=== PATIENT | female | born 1975 | race Caucasian/White ===

== ENCOUNTER 2018-06-07 19:44 | Emergency (ER) | payer OTHER, SELFPAY ==
[2018-06-07 19:45] VITALS: BP 165/90; PULSE 88; RESP 16; TEMP 35.8; O2SAT 100; BMI 39.3
--- NOTE | 2018-06-07 20:09 | US_ITS ---
STUDY: ABDOMINAL ULTRASOUND - RIGHT UPPER QUADRANT REASON FOR VISIT: Female, 43 years old. Right upper quadrant pain. TECHNIQUE: Ultrasound evaluation of the right upper quadrant was performed with real-time and static flaherty-scale imaging. TECHNICAL QUALITY: Adequate. COMPARISON: None. FINDINGS: Liver: The liver measures 16.4 cm. There is normal echogenicity of the liver. The bile ducts are within normal limits. There is hepatic color flow. The direction of portal flow is hepatopetal. There is no demonstrated mass lesion. Gallbladder: Normal distended gallbladder. The gallbladder wall measures 3.7 mm. There is a negative sonographic Renee's sign. There is no definitive pericholecystic fluid. There are echogenic nonshadowing foci within the gallbladder measuring up to 4.3 mm. Common Bile Duct (C.B.D.): The common bile duct measures 2.5 mm. Pancreas: The visualized pancreatic head within normal limits. Right Kidney: Normal size of the right kidney. The right kidney measures 11.7 cm in length. Normal renal cortex. There is no demonstrated renal mass or cyst. There is no right hydronephrosis. US/Gallbladder IMPRESSION: Echogenic nonshadowing foci within the gallbladder that likely reflect underlying polyps and/or calculi. Gallbladder wall thickening with no associated sonographic Renee's sign, cannot exclude chronic cholecystitis. Electronically Signed: Bettie Garcia MD at 23:03 EST Tel , Service support ,
[2018-06-07] MEDS: 0.9% Normal Saline 1,000 ML 1000 ML IV (20:27)
[2018-06-07] MEDS: Ondansetron 4 MG/2 ML Vial IV (20:27)
[2018-06-07] MEDS: Morphine 4 MG/ML Syringe IV (20:27)
[2018-06-07 20:38] LABS: Absolute Lymphocyte Count 1.39 X10^3/ul (0.83-4.51); Absolute Neutrophil Count 4.9 X10^3/uL (2.0-7.7); Basophil# 0.02 X10^3/uL; Basophil% 0.3 % (0-1); Eosinophil# 0.16 X10^3/uL; Eosinophils% 2.4 % (0-5); Hematocrit 41.3 % (37-47); Hemoglobin 13.2 g/dl (12.0-15.0); Lymphocyte # 1.39 X10^3/ul (4.0); Lymphocyte % 20.7 % (19-41); Mean Corpuscular Hgb 27.7 pg (27.0-32.0); Mean Corpuscular Volume 86.6 fL (81-99); Mean Platelet Vol. 11.9 fl (6.2-12.0); Monocyte# 0.23 X10^3/uL; Monocyte% 3.4 % (0-10); Neutrophil # 4.88 X10^3/uL (2.7-7.7); Neutrophil % 72.9 % (47-70); Platelet Count 292 K/mm3 (150-450); RBC Distribution Width CV 14.4 % (11.6-14.6); RBC Distribution Width SD 46.2 fl (35.1-43.9); Red Blood Count 4.77 M/mm3 (4.2-5.4); White Blood Count 6.7 K/mm3 (4.4-11.0)
[2018-06-07 20:39] LABS: POSITIVE COUNT NO; POSITIVE DIFFERENTIAL NO; POSITIVE MORPHOLOGY NO
[2018-06-07 20:49] LABS: ALB/GLOB Ratio 1.1 RATIO (0.9-2.4); AST(SGOT) 22 U/L (15-37); Alanine Aminotransfer ALT/SGPT 28 U/L (13-56); Albumin, Serum 4.3 g/dL (3.2-5.0); Alkaline Phosphatase 75 U/L (45-117); Anion Gap 8 (5-15); BUN 16 mg/dL (7-18); BUN/Creat Ratio 18.7 RATIO (10-20); Calcium,Total 9.4 mg/dL (8.5-10.1); Chloride 102 mmol/L (98-107); Creatinine, Serum 0.86 mg/dL (0.55-1.02); EST Glomerular Filtration Rate 76 mL/min (>60); Est Glom Filt Rate - Afr Amer 92 mL/min (>60); Estimated Creatinine Clearance 68.33 ml/min; Glucose 99 mg/dL (74-106); Lipase 170 U/L (73-393); Potassium 4.1 mmol/L (3.5-5.1); Protein, Total 8.3 g/dL (6.4-8.2); Sodium Level 138 mmol/L (136-145)
--- NOTE | 2018-06-07 22:16 | ED.VISSUMM ---
- ER Visit Summary Date of Service: 06/07/18 Chief Complaint: Abdominal pain History of Present Illness: The patient is a 43 F with abdominal pain that started about an hour prior to arrival she was eating wings. Pain is in the right upper quadrant, there is nausea associated with this. She has no abdominal pain no flank pain no fever chills. She has nausea. Physical Examination: Patient appears in some distress Moist mucous membranes, no obvious facial deformity No C-spine tenderness supple neck. Regular rate and rhythm without any obvious murmurs Clear lungs bilaterally speaking in full sentences without any obvious respiratory distress Abdomen soft with right upper quadrant pain. She has a negative Renee's. Moves all extremities without any difficulty or pain. Skin does not show any obvious rashes or lesions, no trauma. Alert oriented ?3 with no gross focal deficit Emergency Department Course and Treatment: Patient is found to have gallstones, she has no evidence of obstruction or infection. She improved significantly I will discharge her with general surgery follow-up. Disposition: [Discharge stable condition] Impression: [Biliary colic] This note was generated with [employer] dictation software. It may contain incorrect words, spelling, and punctuation that were not noted in review of the chart prior to signing ED Disposition - Plan for ED Patient: Instructions: What are Gallstones? Prescriptions: Hydrocodone/Acetaminophen [[place] 5-325 Tablet] 1 ea PO TID PRN #12 tab PRN Reason: Pain Referrals: Nancy Monge MD [STAFF PHYSICIAN] - 3-5 Days
--- NOTE | 2018-06-07 22:19 | ED.DCSUM_ITS ---
- ER Visit Summary Date of Service: 06/07/18 Chief Complaint: Abdominal pain History of Present Illness: The patient is a 43 F with abdominal pain that started about an hour prior to arrival she was eating wings. Pain is in the right upper quadrant, there is nausea associated with this. She has no abdomin al pain no flank pain no fever chills. She has nausea. Physical Examination: Patient appears in some distress Moist mucous membranes, no obvious facial deformity No C-spine tenderness supple neck. Regular rate and rhythm without any obvious murmurs Clear lungs bilaterally speaking in full sentences without any obvious respiratory distress Abdomen soft with right upper quadrant pain. She has a negative Renee's. Moves all extremities without any difficulty or pain. Skin does not show any obvious rashes or lesions, no trauma. Alert oriented ?3 with no gross focal deficit Emergency Department Course and Treatment: Patient is found to have gallstones, she has no evidence of obstruction or infection. She improved significantly I will discharge her with general surgery follow-up. Disposition: [Discharge stable condition] Impression: [Biliary colic] This note was generated with [employer] dictation software. It may contain incorrect words, spelling, and punctuation that were not noted in review of the chart prior to signing ED Disposition - Plan for ED Patient: Instructions: What are Gallstones? Prescriptions: Hydrocodone/Acetaminophen [[place] 5-325 Tablet] 1 ea PO TID PRN #12 tab PRN Reason: Pain Referrals: Nancy Monge MD [STAFF PHYSICIAN] - 3-5 Days
[2018-06-07 23:09] VITALS: BP 138/78; PULSE 89; RESP 18; O2SAT 95
[2018-06-07] MEDS: HYDROcodone Bitartrate/Apap 5/325 Tablet PO (23:24)
== END 2018-06-07 23:29 | disposition home or self-care (01) ==
PROVIDERS: Emergency Provider Emergency Medicine
DX: K80.50 Calculus of bile duct without cholangitis or cholecystitis without obstruction (principal)
CPT/HCPCS: 76705; 80053; 83690; 85025; 96361; 96374; 96375; 99284; A4216; J2405

== ENCOUNTER 2018-06-16 11:59 | Observation (INO) | payer OTHER, SELFPAY ==
[2018-06-16] VITALS (8 sets, daily range): BP systolic 106–156; BP diastolic 57–98; PULSE 69–106; RESP 16–18; TEMP 36.4–36.9; O2SAT 95–98; BMI 37.8
--- NOTE | 2018-06-16 10:29 | PCM.HP.BLA ---
History and Physical Date of Admission: 06/16/18 Joi Alonzo 1975 ? ? REFERRING PHYSICIAN: Self ? CHIEF COMPLAINT: Consult (Consult Gallbladder) ? HPI: The patient is a 43 year old female s/p laparoscopic cholecystectomy with intraoperative cholangiograms today at [facility]. She was found to have by cholangiograms - no flow into duodenum - despite attempts to flush the CBD and also giving IV glucagon 1mg. She had preoperative normal LFTs when she presented to [facility] ED on 06/07/18. Now has persistent epigastric abdominal pain. She will be admitted to [facility] for ERCP to be done by Dr. Jaramillo. US gallbladder 06/07/18 - echogenic nonshadowing foci withih tne gallbladder measuring up to 4.3 mm, normal common bile duct ? ? PAST MEDICAL HISTORY ? GERD (gastroesophageal reflux disease) ? ? Kidney stones ? ? Migraines ? ? PAST SURGICAL HISTORY ? BREAST REDUCTION Bilateral 10/04/2015 ? GLOBAL ESWL KIDNEY Right 10/2001 ? VAGINAL HYSTERECTOMY ? 04/07/2010 ? Hysterectomy, vaginal for metrorrhagia ? ? Current Outpatient Prescriptions: buPROPion SR (WELLBUTRIN SR) 150 mg 12 hr tablet Take 150 mg by mouth twice daily. ranitidine (ZANTAC) 150 mg tablet Take 150 mg by mouth twice daily. aspirin/acetaminophen/caffeine (EXCEDRIN MIGRAINE ORAL) Take by mouth. esomeprazole mag trihydrate(NEXIUM 20 MG CAP) Take one(1) capsule daily. ? ? ALLERGIES: Bactrim [Sulfamethoxazole]; Percocet [Oxycodone-Acetaminophen] ? PERSONAL HISTORY: Social History Marital status: Spouse name: Years of education: Number of children: Social History Main Topics Smoking status: Never Smoker ? FAMILY HISTORY: no gallbladder disease known in family ? ? REVIEW OF SYSTEMS: General - denies fevers Cardiovascular - denies chest pain Pulmonary - denies shortness of breath Gastrointestinal - denies abdominal pain Neurological - has migraine headaches - took excedrin this morning, denies seizures Genitourinary - denies burning with urination Hematological - denies spontaneous/prolonged bleeding Skin - denies nonhealing skin wounds Musculoskeletal - denies chronic joint/back pain Endocrine - denies diabetes Psychological ? denies hallucinations ? PHYSICAL EXAMINATION: General: The patient is 43 year old female, well nourished, well hydrated in no acute distress. The patient is oriented to time, place, and person. VITALS: Blood pressure 115/84, pulse 105, temperature 36.4 ?C (97.5 ?F), temperature source Temporal Artery, height 160 cm (5' 3), weight 97.7 kg (215 lb 6.4 oz), SpO2 93 %. Body mass index is 38.16 kg/m?. Head ? Normocephalic. EOM intact with sclera clear and no icterus noted. Wearing glasses. Mouth with mucus membranes moist. Neck - supple with no jugular venous distention noted. Trachea is midline. Lungs ? clear to auscultation. Normal breath sounds . No rales/rhonchi/wheezing noted. No labored breathing noted, such as retractions. No cough heard. Heart ? normal S1 and S2 auscultated. No rubs/clicks/murmurs noted. Regular rate. Abdomen ? soft and benign. Tender in epigastrium and right upper quadrant - no peritoneal signs. Normal bowel sounds. Difficult to determine if any masses or organomegaly due to body habitus. Extremities ? no calf tenderness noted. No pitting edema noted. Skin ? normal skin integrity. Neurological ? gait normal, no focal deficits noted Psych ? calm and appropriate ? ? IMPRESSION: s/p laparoscopic cholecystectomy - findings by IOC of CBD obstruction with no flow into duodenum ? PLAN: I have discussed the above with the patient. Will admit to [facility]. I have discussed case with Dr. Jaramillo, he states that he will try to add on ERCP for today or tomorrow. He will evaluate patient today. I have answered all questions to the patient?s satisfaction and the patient has no further questions.
--- NOTE | 2018-06-16 10:34 | HP.PCM_ITS ---
History and Physical Date of Admission: 06/16/18 Joi Alonzo 1975 ? ? REFERRING PHYSICIAN: Self ? CHIEF COMPLAINT: Consult (Consult Gallbladder) ? HPI: The patient is a 43 year old female s/p laparoscopic cholecystectomy with intraoperative cholangiograms today at [facility]. She was found to have by cholangiograms - no flow into duodenum - despite attempts to flush the CBD and also giving IV glucagon 1mg. She had preoperative normal LFTs when she presented to [facility] ED on 06/07/18. Now has persistent epigastric abdominal pain. She will be admitted to [facility] for ERCP to be done by Dr. Jaramillo. US gallbladder 06/07/18 - echogenic nonshadowing foci withih tne gallbladder measuring up to 4.3 mm, normal common bile duct ? ? PAST MEDICAL HISTORY ? GERD (gastroesophageal reflux disease) ? ? Kidney stones ? ? Migraines ? ? PAST SURGICAL HISTORY ? BREAST REDUCTION Bilateral 10/04/2015 ? GLOBAL ESWL KIDNEY Right 10/2001 ? VAGINAL HYSTERECTOMY ? 04/07/2010 ? Hysterectomy, vaginal for metrorrhagia ? ? Current Outpatient Prescriptions: buPROPion SR (WELLBUTRIN SR) 150 mg 12 hr tablet Take 150 mg by mouth twice daily. ranitidine (ZANTAC) 150 mg tablet Take 150 mg by mouth twice daily. aspirin/acetaminophen/caffeine (EXCEDRIN MIGRAINE ORAL) Take by mouth. esomeprazole mag trihydrate(NEXIUM 20 MG CAP) Take one(1) capsule daily. ? ? ALLERGIES: Bactrim [Sulfamethoxazole]; Percocet [Oxycodone-Acetaminophen] ? PERSONAL HISTORY: Social History Marital status: Spouse name: Years of education: Number of children: Social History Main Topics Smoking status: Never Smoker ? FAMILY HISTORY: no gallbladder disease known in family ? ? REVIEW OF SYSTEMS: General - denies fevers Cardiovascular - denies chest pain Pulmonary - denies shortness of breath Gastrointestinal - denies abdominal pain Neurological - has migraine headaches - took excedrin this morning, denies seizures Genitourinary - denies burning with urination Hematological - denies spontaneous/prolonged bleeding Skin - denies nonhealing skin wounds Musculoskeletal - denies chronic joint/back pain Endocrine - denies diabetes Psychological ? denies hallucinations ? PHYSICAL EXAMINATION: General: The patient is 43 year old female, well nourished, well hydrated in no acute distress. The patient is oriented to time, place, and person. VITALS: Blood pressure 115/84, pulse 105, temperature 36.4 ?C (97.5 ?F), temperature source Temporal Artery, height 160 cm (5' 3), weight 97.7 kg (215 lb 6.4 oz), SpO2 93 %. Body mass index is 38.16 kg/m?. Head ? Normocephalic. EOM intact with sclera clear and no icterus noted. Wearing glasses. Mouth with mucus membranes moist. Neck - supple with no jugular venous distention noted. Trachea is midline. Lungs ? clear to auscultation. Normal breath sounds . No rales/rhonchi/wheezing noted. No labored breathing noted, such as retractions. No cough heard. Heart ? normal S1 and S2 auscultated. No rubs/clicks/murmurs noted. Regular rate. Abdomen ? soft and benign. Tender in epigastrium and right upper quadrant - no peritoneal signs. Normal bowel sounds. Difficult to determine if any masses or organomegaly due to body habitus. Extremities ? no calf tenderness noted. No pitting edema noted. Skin ? normal skin integrity. Neurological ? gait normal, no focal deficits noted Psych ? calm and appropriate ? ? IMPRESSION: s/p laparoscopic cholecystectomy - findings by IOC of CBD obstruction with no flow into duodenum ? PLAN: I have discussed the above with the patient. Will admit to [facility]. I have discussed case with Dr. Jaramillo, he states that he will try to add on ERCP for today or tomorrow. He will evaluate patient today. I have answered all questions to the patient?s satisfaction and the patient has no further questions.
--- NOTE | 2018-06-16 12:47 | PN.SURG_ITS ---
Subjective: Patient is complaining of some mild postoperative abdominal pain. - Physical Exam General: Alert, Oriented x3, Cooperative Neck: No JVD Lungs: Normal air movement Cardiovascular: Regular rate, Regular Rhythm Abdomen: Soft Body Mass Index (BMI) 39.3 Medical Necessity - Tobacco Use Smoking Status: Never smoker Assessment/Plan 43-year-old female with obstruction on cholangiogram 1. Patient had laparoscopic cholecystectomy at outside hospital this morning. Intraoperative cholangiogram showed no filling of the duodenum. Patient was sent here for ERCP. 2. I explained ERCP in detail to the patient including the risks of the procedure. I explained the risks including but not limited to bleeding, infection, perforation of the bile duct or bowels, pancreatitis. The patient understands the risks and is willing to proceed with surgery. Ellis Jaramillo MD Pager: [facility] [address] [place] [address], [address] [place] [phone] Office:
[2018-06-16] MEDS: Lactated Ringers 1,000 ML 75 ML IV ×2 (12:53→21:39)
[2018-06-16] MEDS: Morphine 4 MG/ML Syringe IV ×2 (12:54→19:05)
--- NOTE | 2018-06-16 15:04 | NURSING ---
Report given to Anca in surgery at this time. Pt down to OR.
--- NOTE | 2018-06-16 16:00 | RAD_ITS ---
STUDY: ERCP. REASON FOR EXAM: Female, 43 years old. Biliary assessment. FLUOROSCOPY TIME (if supplied): (1:38) minutes/seconds TECHNIQUE: The surgeon performed the ERCP. Contrast was injected. COMPARISON: None. FINDINGS: The visualized common bile duct and central intrahepatic biliary ducts are unremarkable. RAD/ERCP Biliary Only IMPRESSION: Unremarkable examination as seen on the imaging provided. Electronically Signed: Tima Barnes MD at 9:24 EST , Service support ,
--- NOTE | 2018-06-16 17:24 | OP.ENDO_ITS ---
06/16/2018 Jose Alfredo Palomo Re : ERCP procedure for Joi Eason Stacia This procedure was performed on Saturday, June 16, 2018. My impressions and recommendations are as follows: Impressions : - Choledocholithiasis was found. Complete removal was accomplished by biliary sphincterotomy and balloon extraction. - A biliary sphincterotomy was performed. - The biliary tree was swept. Recommendations : - Advance diet as tolerated. My findings are described in the full procedure note, which is enclosed. If I can be of further assistance, please feel free to contact me at Doctor phone number(s): , Work: . Sincerely, Ellis Jaramillo MD 06/16/2018 5:24:15 PM This report has been signed electronically.
[2018-06-16] MEDS: Ondansetron 4 MG/2 ML Vial IV (18:19)
[2018-06-16] MEDS: buPROPion (SR) 150 MG Tablet.SA PO (21:40)
[2018-06-16] MEDS: Famotidine 20 MG Tablet PO (21:40)
[2018-06-17 02:40] VITALS: BP 131/79; PULSE 99; RESP 18; TEMP 36.8; O2SAT 95
[2018-06-17] MEDS: Morphine 4 MG/ML Syringe IV (03:48)
--- NOTE | 2018-06-17 06:39 | PCM.DC.GB ---
Discharge Diet: No Restrictions - avoid carbonated beverages for a few days Discharge Activity: Return to Normal Activity, May not drive while taking narcotic pain medications. Lifting Restrictions: no lifting greater than 20 pounds for 2 weeks Call your doctor if your incision/area has: Continuous Slow Oozing, Foul Smelling Discharge Call your doctor if you observe: Fever of 101 or Higher Additional Dressing/Incision Instructions:: Leave dressings in place. May get wet in shower - do not scrub in those areas. Do not soak - no baths/swimming Additional Instructions: Recommended pain medication regimen: take 650 mg acetaminophen, then in 3 hours take 600 mg ibuprofen, then in 3 hours take 650 mg acetaminophen, then in 3 hours take ibuprofen Take narcotic pain medication for breakthrough pain and at night can follow above for 2-3 days Allergies/Adverse Reactions: Allergies sulfamethoxazole [From Bactrim] Allergy (Verified 03/07/15 18:41) Unknown trimethoprim [From Bactrim] Allergy (Verified 03/07/15 18:41) Unknown acetaminophen [From Percocet] Adverse Reaction (Verified 06/07/18 19:47) Vomiting oxycodone [From Percocet] Adverse Reaction (Verified 06/07/18 19:47) Vomiting Medications to take at Discharge Bupropion HCl [Bupropion HCl Sr] 1 tab PO BID 06/07/18 Hydrocodone/Acetaminophen [[place] 5-325 Tablet] 1 ea PO TID PRN #12 tab 06/07/18 Ranitidine [Zantac] 150 mg PO BID 06/07/18 Aspirin/Acetaminophen/Caffeine [Excedrin Migraine Caplet] 1 each PO PRN PRN 06/16/18 Hydrocodone Bitart/Apap 5-325 [[place] 5MG-325MG] 1 tab PO Q8H PRN PRN 5 Days #15 tab 06/17/18 The following prescriptions were given: Hydrocodone Bitart/Apap 5-325 [[place] 5MG-325MG] 1 tab PO Q8H PRN PRN 5 Days #15 tab PRN Reason: Pain Primary Care Physician: Jose Alfredo Palomo [Primary Care Provider] - Test Results: Test results from this visit will be discussed in further detail at your follow-up appointment, if applicable. Please Follow Up With: Nancy Monge MD - call When: to be seen next week, date and time scheduled
--- NOTE | 2018-06-17 06:42 | DCINST_ITS ---
Discharge Diet: No Restrictions - avoid carbonated beverages for a few days Discharge Activity: Return to Normal Activity, May not drive while taking narcotic pain medications. Lifting Restrictions: no lifting greater than 20 pounds for 2 weeks Call your doctor if your incision/area has: Continuous Slow Oozing, Foul Smelling Discharge Call your doctor if you observe: Fever of 101 or Higher Additional Dressing/Incision Instructions:: Leave dressings in place. May get wet in shower - do not scrub in those areas. Do not soak - no baths/swimming Additional Instructions: Recommended pain medication regimen: take 650 mg acetaminophen, then in 3 hours take 600 mg ibuprofen, then in 3 hours take 650 mg acetaminophen, then in 3 hours take ibuprofen Take narcotic pain medication for breakthrough pain and at night can follow above for 2-3 days Allergies/Adverse Reactions: Allergies sulfamethoxazole [From Bactrim] Allergy (Verified 03/07/15 18:41) Unknown trimethoprim [From Bactrim] Allergy (Verified 03/07/15 18:41) Unknown acetaminophen [From Percocet] Adverse Reaction (Verified 06/07/18 19:47) Vomiting oxycodone [From Percocet] Adverse Reaction (Verified 06/07/18 19:47) Vomiting Medications to take at Discharge Bupropion HCl [Bupropion HCl Sr] 1 tab PO BID 06/07/18 Hydrocodone/Acetaminophen [[place] 5-325 Tablet] 1 ea PO TID PRN #12 tab 06/07/18 Ranitidine [Zantac] 150 mg PO BID 06/07/18 Aspirin/Acetaminophen/Caffeine [Excedrin Migraine Caplet] 1 each PO PRN PRN 06/16/18 Hydrocodone Bitart/Apap 5-325 [[place] 5MG-325MG] 1 tab PO Q8H PRN PRN 5 Days #15 tab 06/17/18 The following prescriptions were given: Hydrocodone Bitart/Apap 5-325 [[place] 5MG-325MG] 1 tab PO Q8H PRN PRN 5 Days #15 tab PRN Reason: Pain Primary Care Physician: Jose Alfredo Palomo [Primary Care Provider] - Test Results: Test results from this visit will be discussed in further detail at your follow- up appointment, if applicable. Please Follow Up With: Nancy Monge MD - call When: to be seen next week, date and time scheduled
--- NOTE | 2018-06-17 07:21 | PCM.PN.SRG ---
Subjective: Patient seems to doing well this morning. - Physical Exam General: Alert, Oriented x3 HEENT: Atraumatic Neck: Supple Lungs: Normal air movement Cardiovascular: Regular rate, Regular Rhythm Abdomen: Soft, Non Tender, Non-Distended Skin: No rashes Musculoskeletal: No Muscle Wasting Neurological: Cranial nerves II-XII grossly intact Psych/Mental Status: Normal Affect Vital Signs Temp Pulse Resp BP Pulse Ox 98.2 F 99 18 131/79 H 95 06/17/18 02:40 06/17/18 02:40 06/17/18 02:40 06/17/18 02:40 06/17/18 02:40 Oxygen Delivery Method Room Air Weight: 213 lb 2.992 oz Body Mass Index (BMI) 37.8 Intake and Output for Last 24 Hours 06/15/18 06/16/18 06/17/18 23:59 23:59 23:59 Intake Total 765 / 765 1537 / 1537 Output Total 125 / 125 1350 / 1350 Balance 640 / 640 187 / 187 Medical Necessity - Tobacco Use Smoking Status: Never smoker Assessment/Plan 43-year-old female with choledocholithiasis status post ERCP 1. The patient had ERCP yesterday and 2 stones were removed from the common bile duct. Patient is doing well this morning. Follow-up with Dr. Monge. She will need to follow-up with me as needed. Ellis Jaramillo MD Pager: [facility] [address] [place] [address], [address] [place] [address] Office:
[2018-06-17 08:21] VITALS: BP 100/63; PULSE 71; RESP 18; TEMP 36.8; O2SAT 97
[2018-06-17] MEDS: buPROPion (SR) 150 MG Tablet.SA PO (09:13)
[2018-06-17] MEDS: Famotidine 20 MG Tablet PO (09:13)
[2018-06-17] MEDS: HYDROcodone Bitartrate/Apap 5/325 Tablet PO (13:25)
[2018-06-17 13:35] VITALS: BP 103/68; PULSE 90; RESP 18; TEMP 36.4; O2SAT 97
== END 2018-06-17 13:40 | disposition home or self-care (01) ==
PROVIDERS: Admitting Provider Surgery; Referring Provider Surgery; Visit Provider Surgery
PROC: (CPT 43260; principal; 2018-06-16 15:30)
DX: K80.50 Calculus of bile duct without cholangitis or cholecystitis without obstruction (principal); K21.9 Gastro-esophageal reflux disease without esophagitis; Z79.899 Other long term (current) drug therapy
CPT/HCPCS: 43262; 74328; 76000; 96361; 96374; 96375; 96376; 99218; J7120; A4216; G0378; G0379; J2405

== ENCOUNTER 2019-04-07 13:18 | Day surgery (SDC) | payer OTHER, SELFPAY ==
[2018-06-16 12:45] VITALS: BMI 37.8
[2019-04-07 13:32] VITALS: BP 151/87; PULSE 90; RESP 15; TEMP 36.5; O2SAT 99; BMI 40.3
[2019-04-07] MEDS: Lactated Ringers 1,000 ML 100 ML IV (13:41)
[2019-04-07] MEDS: Cefazolin 2 GM in 0.9% Normal Saline 100 ML IV (14:44)
--- NOTE | 2019-04-07 14:51 | DCINST_ITS ---
Discharge Diet: Light diet - advance as tolerated Discharge Activity: Return to Normal Activity Call your doctor if you observe: Fever of 101 or Higher Allergies/Adverse Reactions: Allergies sulfamethoxazole [From Bactrim] Allergy (Verified 04/06/19 15:09) Unknown trimethoprim [From Bactrim] Allergy (Verified 04/06/19 15:09) Unknown acetaminophen [From Percocet] Adverse Reaction (Verified 04/06/19 15:09) Vomiting oxycodone [From Percocet] Adverse Reaction (Verified 04/06/19 15:09) Vomiting Medications to take at Discharge Hydrocodone/Acetaminophen [[place] 5-325 Tablet] 1 ea PO TID PRN #12 tab 06/07/18 Ranitidine [Zantac] 150 mg PO BID 06/07/18 Bupropion HCl [Bupropion HCl ER] 200 mg PO BID 04/06/19 Diclofenac [Voltaren] 75 mg PO BIDCM 04/06/19 Ketorolac [Toradol] 10 mg PO Q8H PRN PRN 04/06/19 Ciprofloxacin [Cipro] 500 mg PO BID #6 tab 04/07/19 Hydrocodone/Acetaminophen [[place] 5-325 Tablet] 1 ea PO Q4H PRN PRN 5 Days #14 tab 04/07/19 The following prescriptions were given: Ciprofloxacin [Cipro] 500 mg PO BID #6 tab Prescription Printed Hydrocodone/Acetaminophen [[place] 5-325 Tablet] 1 ea PO Q4H PRN PRN 5 Days #14 tab PRN Reason: Pain Score 1-10/10 Prescription Printed Primary Care Physician: Jose Alfredo Palomo [Primary Care Provider] - Test Results: Test results from this visit will be discussed in further detail at your follow- up appointment, if applicable. Please Follow Up With: Taj Chaves MD When: please call to make an appointment.
--- NOTE | 2019-04-07 15:10 | PCM.OPRPT ---
Report of Operation Date of Procedure: 04/07/19 Pre-Operative Diagnosis: Left ureteral calculi, Post-Operative Diagnosis: The same Surgery/Procedure Performed:: Cystoscopy, balloon dilation of the left ureter, left ureteroscopy laser lithotripsy of stone and basket fragments and left stent placement. Description of Surgical Findings:: 44-year-old female with a stone in the distal left ureter presents to the hospital for extraction of stone removal of the distal obstruction is causing of hydronephrosis and pain. She was taken back to the operating room at the smooth induction of anesthesia she was placed in dorsolithotomy position, the urethra vaginal area prepped and draped in usual sterile fashion, went to the bladder with a 21 [place] rigid cystourethroscope, she did have a slightly large cystocele moderate rectocele on examination, the left ureteral orifice were identified advance a wire I could feel the wire go past the stone I then advanced the balloon dilator and dilated the distal left ureter and then after this left the wire in place the next the wire went in with a SlimLine rigid ureteroscope was able to engage the stone quite easily I then used a 270 ?m laser fiber and laser the stone little tiny pieces I then used a [employer] tipless nitinol basket and basket the fragments out of the distal ureter I then backloaded the stent over the wire the stent up in the kidney left the string of the stent for easy extraction the bladder was drained the patient acetic was reversed taken back to PACU in good condition we will see her next week to remove the stent. Type of Anesthesia:: General Drains: stent left side - Admit VTE Documentation VTE Present on Admission: No VTE Mechan Device Prophylaxis: SCD's
[2019-04-07 15:19] VITALS: BP 131/88; BP 151/87; PULSE 85; RESP 16; TEMP 36.4; O2SAT 93
[2019-04-07 15:30] VITALS: BP 130/85; BP 151/87; PULSE 85; RESP 16; O2SAT 93
[2019-04-07 15:45] VITALS: BP 135/88; BP 151/87; PULSE 78; RESP 16; O2SAT 93
[2019-04-07 15:55] VITALS: BP 143/88; BP 151/87; PULSE 80; RESP 16; TEMP 36.9; O2SAT 93
--- NOTE | 2019-04-07 16:00 | CALC_PTH ---
PATIENT: RAJEEV SAINZ LOC: [facility] [place] U#:[id number] AGE/SX: 44/F ROOM: RE04/07/[address]: Dr. Taj Chaves MD : 1975 BED: DIS: 04/07/2019 SPEC #: [id number] RECD: 04/07/19 16:14 STATUS: HANS CURTIS #: [id number] TRENA: 04/07/19 16:[address]: Taj Chaves DEPT: SURGICAL PATHOLOGY RECD BY: Yoandy Cote ENTERED: 04/08/19 10:38 SP TYPE: Calculi OTHR DR: Dr. Jose Alfredo Palomo MD Tissues: CALCULI Procedures: Surgery Specimen Level I HEADER OPERATION: Cystoscopy, left retrograde ureteral balloon dilation PRE-OP DIAGNOSIS: Left ureteral calculi TISSUE SUBMITTED: Left ureteral calculi for analysis GROSS DIAGNOSIS Fragments of stone, clinically left ureteral calculi, submitted for analysis. SJ:estrellita 04/08/19 COMMENT The calculus is submitted in its entirety for chemical stone analysis. The results from this study will be reported separately. GROSS DESCRIPTION Received is one container labeled with the patient's name and designated left ureteral calculi for analysis. The specimen consists of multiple fragments of gardner-brown stone that in aggregate measure 0.4 x 0.3 x 0.2 cm. The entire specimen is submitted for stone analysis. / MINA:estrellita 04/08/19 CPT: 19496
[2019-04-07] MEDS: HYDROcodone Bitartrate/Apap 5/325 Tablet PO (16:13)
[2019-04-07 16:42] VITALS: BP 151/87; BP 159/88; PULSE 89; RESP 18; TEMP 37.1; O2SAT 98
[2019-04-19 09:07] LABS: Ca Oxalate, Dihydrate 10 % (.); Ca Oxalate, Monohydrate 75 % (.); Calcium Phosphate 15 % (.)
== END 2019-04-07 16:47 | disposition home or self-care (01) ==
LOC: SDC 13:18 → AC 13:22
PROVIDERS: Referring Provider Urology; Visit Provider Urology
PROC: 0TJ98ZZ Inspection of Ureter, Via Natural or Artificial Opening Endoscopic (ICD-10-PCS; CPT 52352; principal; 2019-04-07 15:50)
DX: N20.1 Calculus of ureter (principal); N81.10 Cystocele, unspecified; N81.6 Rectocele; Z87.442 Personal history of urinary calculi
CPT/HCPCS: 00873; 52356; 82360; 88300; J7120; C2617; J2405